=== PATIENT | female | born 1965 | race Caucasian/White ===

== ENCOUNTER 2020-08-29 13:15 | Emergency (ER) | payer MEDICARE, OTHER ==
[~2020-08-29] VITALS: Ht 170.2 cm; Wt 95.5 kg
[~2020-08-29 13:15] MED LIST: ATOM40CA9 PO; BUSP15 PO; FLUO40CA PO; METO25 PO; OMEP20 PO; SIMV-260 PO; TRAZ-184 PO
[2020-08-29] MEDS ORDERED: OXYB5XL PO (13:47)
[2020-08-29] MEDS ORDERED: TRAZ-252 PO (13:47)
[2020-08-29] MEDS ORDERED: HYD25 PO (13:47)
[2020-08-29] MEDS ORDERED: EMPA25TA PO (13:47)
[2020-08-29] MEDS ORDERED: IBUP-2070 PO (13:47)
[2020-08-29] MEDS ORDERED: FLUT16H NASAL (13:47)
[2020-08-29] MEDS ORDERED: EZET10TA13 PO (13:47)
[2020-08-29] MEDS ORDERED: KETOROLAC TROMETHAMINE 10 MG TABLET PO ONE (15:15)
[2020-08-29 15:56] LABS: GLUCOSE,POINT OF CARE 244 MG/DL (70-110)
[2020-08-29] MEDS ORDERED: BACITRACIN 0.9 GM PACKET OINTMENT TP ONE (16:15)
[2020-08-29 16:30] VITALS: BP 138/92
== END 2020-08-29 16:54 | disposition home or self-care (01) ==
LOC: EMS 13:23
DX: E11.65 Type 2 diabetes mellitus with hyperglycemia (principal); Z88.8 Allergy status to other drugs, medicaments and biological substances; Z79.899 Other long term (current) drug therapy
CPT/HCPCS: 82948